=== PATIENT | female | born 1990 | race Hispanic/Latino ===

== ENCOUNTER 2019-02-20 13:26 | Outpatient (CLI) | payer OTHER ==
--- NOTE | 2019-02-20 15:09 | ULT ---
PELVIC ULTRASOUND: Transabdominal ultrasound of pelvis performed. INDICATION: Right pelvic pain. FINDINGS: The uterus has a normal sonographic appearance measured at 9.1 x 6.0 x 3.9 cm. Both ovaries appear unremarkable. Bilateral ovarian follicles are seen. Color Doppler with spectral analysis demonstrates blood flow to both ovaries. No free fluid. The endometrial stripe measures 6-7 mm. IMPRESSION: Unremarkable pelvic ultrasound. POS: [facility]
== END 2019-02-20 13:27 | disposition home or self-care (01) ==
LOC: BICULT 13:26
PROVIDERS: ATTEND Family Medicine
DX: N94.89 Other specified conditions associated with female genital organs and menstrual cycle (principal)
CPT/HCPCS: 76856; 93976